=== PATIENT | female | born 1950 | race Caucasian/White ===

== ENCOUNTER 2022-02-22 15:36 | Observation (INO) ==
[2022-02-22] MEDS ORDERED: Ketorolac 30 MG/ML VIAL IVP PRN (18:05)
[2022-02-22] MEDS ORDERED: Naloxone 0.4 MG/ML INJ IVP PRN (18:05)
[2022-02-22] MEDS ORDERED: Melatonin 3 MG TABLET PO PRN (18:05)
[2022-02-22] MEDS ORDERED: Ondansetron 4 MG/2 ML VIAL IVP PRN (18:05)
[2022-02-22] MEDS ORDERED: Acetaminophen 325 MG TABLET PO PRN (18:05)
[2022-02-23 01:59] LABS: Basophils % 0.4 %; Eosinophils % 0.2 %; Hematocrit 38.7 % (35.3-44.9); Hemoglobin 13.1 g/dL (11.5-15.4); Immature Granulocytes % 0.3 % (0-4); Lymphocytes # 1.8 K/mcL (0.6-4.6); Lymphocytes % 16.5 %; Mean Corpuscular HGB Conc 33.9 g/dL (31.6-35.5); Mean Corpuscular Hemoglobin 30.6 pg (28.0-33.3); Mean Corpuscular Volume 90.4 fL (83.0-100.0); Monocytes # 0.7 K/mcL (0.0-1.3); Monocytes % 6.3 %; Neutrophils # 8.5 K/mcL (1.6-8.9); Platelet Count 217 K/mcL (140-400); Red Blood Count 4.28 M/mcL (3.82-4.97); Red Cell Distribution Width 12.6 % (11.5-14.5); Segmented Neutrophils % 76.3 %; White Blood Count 11.1 K/mcL (4.3-11.1)
[2022-02-23 02:15] LABS: Calcium 8.9 mg/dL (8.6-10.3); Potassium 4.9 mEq/L (3.5-5.1)
[2022-02-23] MEDS ORDERED: D5% in Water 1,000 ML IVC PRN ×2 (03:24→12:45)
[2022-02-23] MEDS ORDERED: *HR* Dextrose 50 % in Water (Syg) 50 ML SYRINGE IVP PRN ×2 (03:24→12:45)
[2022-02-23] MEDS ORDERED: Dextrose Gel 15 GM/37.5 ML TUBE PO PRN ×4 (03:24→12:45)
[2022-02-23] MEDS ORDERED: Ringers Solution, Lactated 1,000 ML IVC SCH ×2 (03:30→12:45)
[2022-02-23] MEDS ORDERED: *HR* Heparin 5,000 UNIT/ML VIAL SQ SCH ×2 (06:00→14:00)
[2022-02-23] MEDS ORDERED: *HR* Enoxaparin 40 MG/0.4 ML SYRINGE SQ SCH (06:00)
[2022-02-23] MEDS ORDERED: *HR* HYDROmorphone PF 0.5 MG/0.5 ML SYRINGE IVP PRN (07:32)
[2022-02-23] MEDS ORDERED: cefTRIAXone 1,000 MG in Water for inj. (sterile) 10 ML IVP SCH (09:00)
[2022-02-23] MEDS ORDERED: Ondansetron 4 MG/2 ML VIAL ONE (10:53)
[2022-02-23] MEDS ORDERED: Lidocaine -MPF 2% 5 ML VIAL ONE (10:53)
[2022-02-23] MEDS ORDERED: *HR* FentaNYL (PF) 100 MCG/2 ML VIAL ONE (10:53)
[2022-02-23] MEDS ORDERED: *HR* Propofol 200 MG/20 ML VIAL IVP ONE (10:54)
[2022-02-23] MEDS ORDERED: Iopamidol - 300 50 ML VIAL ONE (11:22)
[2022-02-23] MEDS ORDERED: EPHEDrine 50 MG/ML VIAL ONE (11:56)
[2022-02-23] MEDS ORDERED: Ondansetron 4 MG/2 ML VIAL IVP PRN (12:45)
[2022-02-23] MEDS ORDERED: Melatonin 3 MG TABLET PO PRN (12:45)
[2022-02-23] MEDS ORDERED: Naloxone 0.4 MG/ML INJ IVP PRN (12:45)
[2022-02-23] MEDS ORDERED: Acetaminophen 325 MG TABLET PO PRN (12:45)
[2022-02-23 15:23] LABS: Calcium 9.1 mg/dL (8.6-10.3); Potassium 4.4 mEq/L (3.5-5.1)
[2022-02-23] MEDS ORDERED: 0.9 % Sodium Chloride 500 ML IVC ONE (15:31)
[2022-02-23 16:32] VITALS: BP 151/72; PULSE 83; TEMP 98; O2SAT 95
[2022-02-24] MEDS ORDERED: cefTRIAXone 1,000 MG in Water for inj. (sterile) 10 ML IVP SCH (09:00)
== END 2022-02-23 17:15 | disposition home or self-care (01) ==
LOC: 3ANU → SUATTDRO 17:46
PROVIDERS: ADMIT Internal Medicine; ATTEND Hospitalist